=== PATIENT | male | born 1980 | race Caucasian/White ===

== ENCOUNTER 2019-05-18 06:56 | Emergency (ER) | payer BC, MEDICAID ==
[~2019-05-18] VITALS: Ht 205.7 cm; Wt 140.6 kg
[2019-05-18 07:12] VITALS: BP 124/78
== END 2019-05-18 07:59 | disposition left against medical advice (07) ==
LOC: ER 06:56
DX: S91.115A Laceration without foreign body of left lesser toe(s) without damage to nail, initial encounter (principal); Z53.21 Procedure and treatment not carried out due to patient leaving prior to being seen by health care provider; W18.49XA Other slipping, tripping and stumbling without falling, initial encounter; Y93.89 Activity, other specified; Y92.89 Other specified places as the place of occurrence of the external cause; Y99.8 Other external cause status